=== PATIENT | female | born 1960 | race Caucasian/White ===

== ENCOUNTER 2021-11-27 08:58 | Outpatient (RCR) | payer MEDICAID, SELFPAY ==
[2021-11-27 09:25] VITALS: BP 149/112; PULSE 103; RESP 18; TEMP 36.3; BMI 19.5
--- NOTE | 2021-11-27 12:11 | HP.PCM_ITS ---
History of Present Illness Date of Service: 11/27/21 Chief Complaint: Left ischium pressure ulcer History of Wound: Cleo is a pleasant 61-year-old female who presents to the wound healing center on referral from [facility] for evaluation of the left ischium pressure ulcer. She also had an ulcer of the right ischium and sacrum, which are now healed. The patient denies any significant past medical history. She does not take any medications routinely. She is not a smoker. She has been homeless since February 2021. She states she was living in [place] when her left ischial ulcer developed approximately 3 months ago. At that time, she was sleeping on a hard floor, and sitting on a rubber chair cushion. Since that time, she has been at various homeless shelters. She was evaluated at [facility], and placed on doxycycline 100 mg twice daily. She has 1 day left of this antibiotic. She states she was also on a course of antibiotics prior to this one, but does not recall the name. She has not been performing any wound dressings for her left ischial ulcer. She washes the left ischial ulcer with soap and water when she showers, and covers it with a Band- Aid. She does not have anyone available to assist her with dressing changes, and does not want others at the homeless alf to know that she has this ulcer. The patient denies fever, chills, general malaise, or poor appetite. The patient has not had increased redness, swelling, or purulent/malodorous drainage from affected area. She does report pain in her left buttock that radiates down her left leg with ambulation. She expresses some apprehension to have labs and imaging done, stating that she has more important things to worry about such as getting her ID. She states she does not stay put for very long, before moving from city to city. [facility] Medical History (Updated 11/27/21 @ 12:24 by Lesli Castano NP, COATING MACHINE OPERATOR HELPER-C) At high risk for malnutrition Homelessness Pressure ulcer of ischium, stage 3 ROS Constitutional Constitutional: Denies chills, fever(s) or night sweats Eyes Eyes: Denies change in vision or double vision ENT HEENT: Denies lip swelling or tongue swelling Cardiovascular Cardiovascular: Denies chest pain, leg edema or palpitations Respiratory/Chest Respiratory/Chest: Denies cough, shortness of breath at rest, shortness of breath with exertion or wheezing Gastrointestinal Gastrointestinal: Denies diarrhea, nausea or vomiting Genitourinary Genitourinary: Denies dysuria or hematuria Musculoskeletal Musculoskeletal: Reports extremity pain; Denies abnormal gait, muscle weakness, numbness or tingling Integumentary Integumentary: Reports wounds; Denies rash Neurologic Neurologic: Denies abnormal gait, abnormal speech or focal weakness Endocrine Endocrinology: Denies cold intolerance, heat intolerance, polydipsia or polyuria Hematologic/Lymphatic Hematologic/Lymphatic: Denies easy bleeding or easy bruising Vital Signs Vital Signs Vital Signs: 11/27/21 09:25 Temperature 97.4 F L Temperature Source Temporal Pulse Rate 103 H Respiratory Rate 18 Blood Pressure 149/112 H Blood Pressure Mean 124 Blood Pressure Source Monitor Blood Pressure Position Semi-Fowlers Blood Pressure Location Left Arm Weight Weight: 100 lb Body Mass Index (BMI) 19.5 Physical Exam Const alert and no apparent distress General Appearance: comfortable, well kempt and anxious Nutritional Appearance: thin HEENT Head and Scalp: normocephalic and atraumatic Eyes EOMs intact bilaterally Neck supple and no JVD Resp normal respiratory effort, normal air movement and no use of accessory muscles Auscultation: clear to auscultation bilaterally; Negative for crackles, rales, rhonchi or wheezes Cardio regular rate and regular rhythm GI normal to inspection, nondistended, normoactive bowel sounds Extremity normal capillary refill, no joint enlargement and no clubbing, cyanosis or edema Peripheral Pulses: Yes dorsalis pedis pulses present bilateral 2+ Skin Wounds: wounds noted No malodorous Wound Narrative: Left ischial ulcer with subcutaneous layer exposed. Small amount of slough and devitalized tissue present. Circumferential undermining present. No tunneling or probing to bone. She has purulence or induration. Mild tenderness to palpation. No warmth, rash, or purulent/malodorous drainage. Neuro oriented x3, moves all extremities and no focal motor deficits Psych Negative for thought process normal Appearance: appropriate Activity / Motor Behavior: hyperactive and disorganized Speech: excessive Mood & Affect: anxious Thought Process: disorganized Thought Content: normal thought content Attention / Concentration: attention grossly impaired Memory / Cognition: memory grossly intact Judgement: questionable Debridement Note Debridement Note Wound debrided: Left ischial ulcer Laterality: Left Wound Grade/Stage: Category 3 Type of Debridement: Excisional debridement Anesthesia Used: 4% Lidocaine Solution and Cetacaine Depth: in the subcutaneous layer Percentage of wound debrided: 100 Instrument Used: 3mm curette Tissue Removed: Slough and devitalized tissue Severity: Fat Layer Exposed Amount of bleeding with debridement: Mild Bleeding Controlled with: Pressure Patient tolerated procedure: Patient tolerated procedure well Post-Debridement Measurements and Additional Note: Post-Debridement Measurements/Treatment - Nurse 1 - General Ulcer Assessment Start: 11/27/21 09:25 Freq: Status: Active Protocol: SOURAV Activity Type Activity Date Activity User E-Sign Co-Sign Detail Recorded Client Recorded Date Recorded By Document 11/27/21 09:25 LAMONT [id number] 11/27/21 09:32 LAMONT 11/27/21 09:25 - Today's Visit Information Type of service Initial Visit Arrival Mode Ambulatory Patient Identification Verified (Name & Yes ) Patient Requires Transmission-Based No Precautions Height and Weight Height 5 ft Weight 100 lb Weight in Pounds 100.0 lbs Body Mass Index (BMI) 19.5 BMI Classification Normal BSA - Edwin 1.39 Vital Signs Temperature (97.8 F-99.1 F) 97.4 F L Temperature Source Temporal Pulse Rate (60-100) 103 H Pulse Location Monitor Respiratory Rate (12-18) 18 Respiratory rate source Observation Blood Pressure (90/60-120/80) 149/112 H Blood Pressure Mean 124 Source Monitor Position Semi-Fowlers Blood Pressure Location Left Arm History Since Last Visit- (Skip if this is Patient's initial visit) Left Footwear Regular Shoe Right Footwear Regular Shoe Pain Scale: 0-10 Numeric Is Patient Pain Free? Yes Communication Assessment Preferred language Colombian Piercing Mill Operator Required No Able to Read Yes Able to Write Yes Communication Tools None Right Hearing Abillity Normal Left Hearing Abillity Normal Visual Assistive Devices Glasses Teaching Assessment Preferences Verbal,Written, Audio/Visual, Demonstration Readiness To Learn Excellent Willingness to Engage in Self Management Med Activies Readiness to Engage in Self Management Med Activities Anxiety Level Anxious Cooperation Cooperative Perception Coherent Interest in Health Problem Asks Questions Education Importance Acknowledges Need Does Patient Smoke tobacco or other No substances Is Patient Diabetic No Functional Assessment Recent Decline in Ability to Perform Denies Any Declines Culture/Hoahaoism/Rn Spine Cultural/Hoahaoism Needs that may affect No Treatment Plan Would you allow our hospital tax credit leasing consultant to No meet you for the purpose of spiritual/ emotional support? Rn Spine to contact place of shinto No Teaching: Wound Center [facility] Orientation/ Contacting Physician -Person Taught Patient -Teaching Method Discussion, Demonstration -Response to teaching Return demonstration, Verbalize understanding - Nurse 1 - General Ulcer Measurement Start: 11/27/21 09:25 Freq: Status: Active Protocol: Activity Type Activity Date Activity User E-Sign Co-Sign Detail Recorded Client Recorded Date Recorded By Document 11/27/21 09:25 [id number] 11/27/21 09:32 JF Edit Result 11/27/21 09:25 JF (1) [id number] 11/27/21 09:32 JF (1) 1-left ischium - Circular Undermining No => Yes 11/27/21 09:25 Wound Center Nurse 1 1-left ischium -Combined with other wound No -Current Size (cm) - Length 0.5 -Current Size (cm) - Width 1.2 -Current Size (cm) - Depth 1.4 -Total Square Cm 0.60 -Photo Taken Yes -Epithelialization Small 1-33% -Tunneling No -Undermining/Tunneling No -Circular Undermining Yes -Exudate Amt Small -Exudate Type Serosanguineous -Wound Margin Flat & Intact -Granulation Amt Medium (34-66%) -Granulation Quality Red -Slough/Fibrin Yes -Necrosis Amt Small (1-33%) -Necrotic Tissue Type Adherent Slough -Structure Exposed N/A -Texture ([place]-wound Skin Appearance) Assessed -Moisture ([place]-wound Skin Appearance) Assessed,Dry/ Scaly -Color ([place]-wound Skin Appearance) Assessed -Temperature ([place]-wound Skin No Abnormality Appearance) (Pt Warm) -Tenderness on Palpation ([place]-wound No Skin Appearance) -Ulcer Cleansing Rinsed/ Irrigated with Saline -Foul Odor after Cleansing No -Anesthetic Used 4% Lidocaine Solution Lower Limb Edema Present NA - Nurse 2 - General Ulcer CM Notes Start: 11/27/21 09:25 Freq: Status: Active Protocol: Activity Type Activity Date Activity User E-Sign Co-Sign Detail Recorded Client Recorded Date Recorded By Document 11/27/21 11:23 PL [id number] 11/27/21 11:25 PL 11/27/21 11:23 Wound Center Nurse 2 1-left ischium -Time 09:45 -Correct Patient Yes -Correct Side, Site, Position Yes -Correct Procedure Yes -Procedure Performed Yes -Type of Procedure Debridement -Clinical Debridement Subcutaneous -Tissue Removed Subcutaneous -Post Debridement (cm) - Length 0.7 -Post Debridement (cm) - Width 1.5 -Post Debridement (cm) - Depth 0.9 -Total Square (Post) (cm) 1.05 -Area of Debridement (cm) - Length 0.7 -Area of Debridement (cm) - Width 1.5 -Total Square (Area) (cm) 1.05 -Tunneling No -Undermining/Tunneling Yes -Undermining/Tunneling Starts (O'clock 12 ) -Undermining/Tunneling Ends (O'clock) 11 -Maximum Distance (cm) 2.0 -Circular Undermining Yes -Wound/Ulcer Outcome Not Healed -Ulcer Cleansing Rinsed/ Irrigated with Saline -Foul Odor after Cleansing No -Bioengineered Tissue No -Bleeding Controlled with Pressure -Treatment Response Procedure Tolerated Well -Debridement - Subq, 1st 20sq cm Yes Pain Scale: 0-10 Numeric Is Patient Pain Free? Yes - Nurse 3 - General Ulcer D/C NN Start: 11/27/21 09:25 Freq: Status: Active Protocol: Activity Type Activity Date Activity User E-Sign Co-Sign Detail Recorded Client Recorded Date Recorded By Document 11/27/21 10:23 DUC [id number] 11/27/21 10:24 DUC 11/27/21 10:23 Wound Care Nurse 3 1-left ischium -Ulcer Cleansing Rinsed/ Irrigated with Saline -Foul Odor after Cleansing No -Negative Pressure Wound Therapy N/A -Primary Dressing Applied Aquacel AG 4x4, Mepilex Border -Aquacel AG 4x4 1 -Mepilex Border 1 Pain Scale: 0-10 Numeric Is Patient Pain Free? Yes WC - Visit Discharge Discharge Condition Stable Ambulatory Status Ambulatory Medication Reconcilliation completed & Yes provided to patient/care provider Clinical Summary of Care Provided Yes Charges/Coding Visit Charges Office Visits / Consults: [id number] OV L4 New Procedures Integumentary [id number]: [id number] Michelle subq tissue 20 sq cm/< Assessment/Plan Assessment/Plan (1) Pressure ulcer of ischium, stage 3: CODE(S): L89.303 - Pressure ulcer of unspecified buttock, stage 3 QUALIFIERS: Laterality: left Qualified Code(s): L89.323 - Pressure ulcer of left buttock, stage 3 (2) Homelessness: CODE(S): Z59.00 - Homelessness unspecified (3) At high risk for malnutrition: CODE(S): Z91.89 - Other specified personal risk factors, not elsewhere classified PLAN: Debridement performed today in clinic as annotated above. Aquacel Ag packing applied to the left ischial ulcer. Covered with Mepilex. We will apply for a snap VAC for the patient's left ischial ulcer. At home wound-care instructions: Keep Aquacel Ag packing and Mepilex dressing intact and dry. Return for nurse visit on 11/30/2021, at which time the dressing will be removed. If snap VAC is approved and available at that time, snap VAC will be applied. The patient will return on Monday 12/04 and Friday 12/08 for nurse visits for dressing or VAC changes. Off-loading: The patient was instructed to avoid pressure and friction on the affected areas. Reposition every hour at minimum. Avoid prolonged sitting. Frequent ambulation is encouraged. Diet: Patient encouraged to increase protein intake when possible. Labs/cultures/imaging: Cultures ordered and collected today. Routine baseline lab work ordered. X-rays ordered. Follow-up: Return on Tuesday, Tuesday, and Tuesday for nurse visits as annotated above. Return to clinic in for re-evaluation with a provider in 2 weeks. Return sooner or report to the emergency room should symptoms worsen, or new symptoms arise. Note: [employer] speech recognition outcomes specialist software was used to create portions of this document. Sound-alike and misspelled words, as well as other outcomes specialist errors may be contained in the documentation.
--- NOTE | 2021-12-01 15:53 | WC ---
This nurse called the patient to inform her that the culture that was taken on 11/27/21 had come back positive and that an antibiotic had been sent to [facility] [place] in [place]. The patient informed me that she no longer needed the services of the wound center, that her wound was healing nicely and that she wound not be coming back. She then proceeded to inform me that she did not need the antibiotic as she had just been on antibiotics for 20 days, and that she was actually immune to antibiotics and will no longer have need of them. I verbally acknowledged the patients statements. The Patients provider was notified of the patients statements.
== END 2021-12-08 23:59 | disposition home or self-care (01) ==
LOC: WC 08:58
PROVIDERS: PCP Nurse Practitioner Adult Health; Visit Provider Nurse Practitioner Family
DX: L89.323 Pressure ulcer of left buttock, stage 3 (principal); Z59.00 Homelessness unspecified; Z91.89 Other specified personal risk factors, not elsewhere classified
CPT/HCPCS: 11042; 87070; 87075; 87077; 87205; 99213; G0463